=== PATIENT | male | born 1950 | race Caucasian/White ===

== ENCOUNTER → 2018-02-13 09:08 | Outpatient (CLI) | payer MEDICARE, OTHER, SELFPAY ==
[2018-02-13 10:55] LABS: Alanine Aminotransferase 35 IU/L (21-72); Albumin 4.6 g/dL (3.5-5.0); Albumin Globulin Ratio 1.5 (1.0-2.8); Alkaline Phosphatase 58 U/L (38-126); Aspartate Aminotransferase 25 IU/L (17-59); BUN Creatinine Ratio 23.3 (6-22); Bilirubin Total 0.8 mg/dL (0.2-1.3); Blood Urea Nitrogen 21 mg/dL (9-20); Calcium 9.4 mg/dL (8.4-10.2); Carbon Dioxide 31 mmol/L (22-32); Chloride 98 mmol/L (98-107); Cholesterol 208 mg/dL (140-199); Estimated Glomerular Filt Rate > 60.0 mL/min (>60); Globulin 3.1 g/dL (1.7-4.1); Glucose 98 mg/dL (80-110); HDL Cholesterol 54 mg/dL (40-60); HEMOLYSIS < 15 (0-50); LDL Cholesterol Calculated 130 mg/dL (<100); Potassium 4.4 mmol/L (3.4-5.1); Sodium 139 mmol/L (137-145); Total Protein 7.7 g/dL (6.3-8.2); Triglycerides 122 mg/dL (35-150)
[2018-02-13 11:22] LABS: Prostate Specific Antigen Scrn 0.391 ng/mL (0.1-4.0)
[2018-02-13 11:52] LABS: Hep C Virus Ab w/Reflex Quant NEGATIVE s/c (NEGATIVE)
== END ==
PROVIDERS: Visit Provider Internal Medicine
DX: E78.00 Pure hypercholesterolemia, unspecified (principal); D48.5 Neoplasm of uncertain behavior of skin
CPT/HCPCS: 36415; 80053; 80061; 86803; G0103

== ENCOUNTER → 2018-05-17 10:37 | Outpatient (CLI) | payer MEDICARE, OTHER, SELFPAY ==
[2018-05-17 13:21] LABS: Cholesterol 172 mg/dL (140-199); HDL Cholesterol 55 mg/dL (40-60); LDL Cholesterol Calculated 92 mg/dL (<100); Triglycerides 126 mg/dL (35-150)
== END ==
PROVIDERS: PCP Internal Medicine; Visit Provider Internal Medicine
DX: E78.00 Pure hypercholesterolemia, unspecified (principal)
CPT/HCPCS: 36415; 80061

== ENCOUNTER → 2019-10-23 13:48 | Outpatient (CLI) | payer MEDICARE, OTHER, SELFPAY ==
[2019-10-23 14:43] LABS: Alanine Aminotransferase 35 IU/L (<50); Albumin 4.5 g/dL (3.5-5.0); Albumin Globulin Ratio 1.7 (1.0-2.8); Alkaline Phosphatase 73 U/L (38-126); Aspartate Aminotransferase 30 IU/L (17-59); BUN Creatinine Ratio 19.8 (6-22); Bilirubin Total 0.5 mg/dL (0.2-1.3); Blood Urea Nitrogen 16 mg/dL (9-20); Calcium 9.5 mg/dL (8.4-10.2); Carbon Dioxide 27 mmol/L (22-32); Chloride 94 mmol/L (98-107); Cholesterol 168 mg/dL (140-199); Estimated Glomerular Filt Rate > 60.0 mL/min (>60); Globulin 2.7 g/dL (1.7-4.1); Glucose 87 mg/dL (80-110); HDL Cholesterol 51 mg/dL (40-60); HEMOLYSIS < 15 (0-50); LDL Cholesterol Calculated 88 mg/dL (<100); Potassium 4.4 mmol/L (3.4-5.1); Sodium 131 mmol/L (137-145); Total Protein 7.2 g/dL (6.3-8.2); Triglycerides 146 mg/dL (35-150)
== END ==
PROVIDERS: PCP Internal Medicine; Referring Provider Internal Medicine; Visit Provider Internal Medicine
DX: E78.00 Pure hypercholesterolemia, unspecified (principal)
CPT/HCPCS: 36415; 80053; 80061

== ENCOUNTER → 2021-10-31 13:23 | Outpatient (CLI) | payer MEDICARE, OTHER, SELFPAY ==
--- NOTE | 2021-11-23 07:37 | P.HOLT.S_ITS ---
[employer] Chemist Report Referral & Results Date Patient Seen: 10/31/21 Requesting provider: Joni Mae Indication: Atrial fibrillation Duration of monitoring (days): 14 Diary information: There was 1 patient triggered event and 1 patient diary entry and both of these events were associated with sinus rhythm only Data: Minimum heart rate identified was 43 beats per minute at 02:35 on 11/12/2021 Maximum heart rate was 132 beats per minute at 14:52 on 11/02/2021 Less than 1% of identified beats were ventricular or supraventricular ectopic in origin, which would classify them as rare. Atrial fibrillation was identified on this study comprising less than 1% of identified beats with the longest duration episode lasting 1 minute 3 seconds. 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
== END ==
PROVIDERS: PCP Internal Medicine; Referring Provider Family Medicine; Visit Provider Family Medicine
DX: I49.9 Cardiac arrhythmia, unspecified (principal); I48.91 Unspecified atrial fibrillation
CPT/HCPCS: 93246; 93248

== ENCOUNTER 2022-01-09 15:27 | Emergency (ER) | payer MEDICARE, OTHER, SELFPAY ==
[2022-01-09] VITALS (46 sets, daily range): BP systolic 99–139; BP diastolic 59–88; PULSE 60–150; RESP 12–24; TEMP 36.4; O2SAT 94–100; BMI 27.9
--- NOTE | 2022-01-09 15:37 | DI.RAD.S_ITS ---
PROCEDURE: XR CHEST 1V INDICATIONS: chest pain TECHNIQUE: One view of the chest was acquired. COMPARISON: None. FINDINGS: Surgical changes and devices: None. Lungs and pleura: Lungs are clear. No pleural effusions or pneumothorax. Mediastinum: The cardiac contours are within normal limits. The aorta demonstrates calcification and tortuosity. Bones and chest wall: No suspicious bony lesions. Age-appropriate bony degenerative changes are seen. Overlying soft tissues appear unremarkable. IMPRESSION: Unremarkable portable chest for age. Dictated by: Pasquale Brenner M.D. on 01/09/2022 at 15:14 Approved by: Pasquale Brenner M.D. on 01/09/2022 at 15:15
[2022-01-09 15:59] LABS: Add Manual Diff / Slide Review NO; Basophils Absolute Auto 0 /uL (0-100); Basophils Percent Auto 0.3 % (0-2); Eosinophils Absolute Auto 100 /uL (0-450); Eosinophils Percent Auto 0.6 % (2-4); Hematocrit 43.5 % (41-53); Hemoglobin 14.7 g/dL (13.5-17.5); Lymphocytes Absolute Auto 4200 /uL (1100-4500); Lymphocytes Percent Auto 37.3 % (25-40); Mean Corpuscular HGB Conc 33.9 % (30-36); Mean Corpuscular Hemoglobin 31.5 PG (26-34); Mean Corpuscular Volume 92.9 fL (80-100); Monocytes Absolute Auto 700 /uL (0-900); Monocytes Percent Auto 6.2 % (3-14); Neutrophils Absolute Auto 6200 /uL (1500-7000); Neutrophils Percent Auto 55.6 % (50-75); Platelet Count 224 X10^3/uL (150-400); Red Blood Cell Count 4.68 X10^6/uL (4.5-5.9); Red Cell Distribution Width 13.4 % (11.6-14.8); White Blood Cell Count 11.2 X10^3/uL (4.5-11.0)
[2022-01-09 16:04] LABS: Alanine Aminotransferase 38 IU/L (<50); Albumin 4.3 g/dL (3.5-5.0); Albumin Globulin Ratio 1.3 (1.0-2.8); Alkaline Phosphatase 65 U/L (38-126); Aspartate Aminotransferase 39 IU/L (17-59); BUN Creatinine Ratio 26.1 (6-22); Bilirubin Total 0.5 mg/dL (0.2-1.3); Blood Urea Nitrogen 23 mg/dL (9-20); Calcium 9.1 mg/dL (8.4-10.2); Carbon Dioxide 23 mmol/L (22-32); Chloride 95 mmol/L (98-107); Creatine Kinase 66 U/L (55-170); Estimated Glomerular Filt Rate > 60 mL/min (>60); Globulin 3.2 g/dL (1.7-4.1); Glucose 116 mg/dL (80-110); HEMOLYSIS < 15 (0-50); Lipase 79 U/L (23-300); Magnesium 1.9 mg/dL (1.6-2.3); Potassium 3.8 mmol/L (3.4-5.1); Sodium 129 mmol/L (137-145); Total Protein 7.5 g/dL (6.3-8.2)
--- NOTE | 2022-01-09 16:13 | PC.NURSE ---
Addendum entered by Tito Cassidy R.N. 01/09/22 16:15: Pt reports similar episodes that began in his 40s. Original Note: Pt reports 2-3 episodes of feeling heart palpitations with exertion in past 6 months. Pt was hiking today when this episode began. Pt reports episodes always go away with lying flat. Pt reports Zio patch placed earlier this summer for 2 weeks. No new medications.
[2022-01-09 16:15] LABS: Troponin I < 0.012 ng/mL (0.01-0.034)
--- NOTE | 2022-01-09 19:37 | ED_ITS ---
HPI - Arrhythmia/Palpitations General Chief Complaint: Arrhythmia/Palpitations Stated Complaint: Elevated HR, BPM 140-160 Time Seen by Provider: 01/09/22 16:36 Mode of arrival: Family Vehicle History of Present Illness HPI narrative: 71-year-old gentleman with a history of asthma, hyperlipidemia, who has noticed occasional palpitations over the years. He wore a Zio Patch the spring but did not catch any abnormalities. He states the most recent episode was in September lasted for approximately 12 hours with resolution. He describes it as a slower rate. Today he was hiking in the [employer] and noted that his heart all of a sudden began going fast in fairly rapidly. This was at noon today and not associated with any other abnormalities. No chest pain, diaphoresis, dyspnea, syncope or near-syncope. Related Data Previous Rx's Medication Instructions Recorded rivaroxaban 20 mg tablet (Xarelto) 20 mg PO DAILY #30 tabs 01/09/22 Allergies Allergy/AdvReac Type Severity Reaction Status Date / Time No Known Drug Allergies Allergy Verified 01/09/22 15:36 Review of Systems Review of Systems Narrative: Remainder of complete review of systems is otherwise unremarkable except for that included in the HPI. Patient History Medical History (Updated 01/09/22 @ 23:35 by Nevaeh Brown MD) Asthma Chronic GERD Hyperlipidemia Paroxysmal atrial fibrillation Social History Smoking Status: Never smoker Smoking Status: Never smoker alcohol intake frequency: 0-2 drinks per day Substance Use Type: does not use Exam Initial Vital Signs Initial Vital Signs: Vital Signs Temperature 97.6 F 01/09/22 15:33 Pulse Rate 150 H 01/09/22 15:33 Respiratory Rate 12 01/09/22 15:33 Pulse Oximetry 98 01/09/22 15:33 Oxygen Delivery Method 01/09/22 15:33 General: Healthy appearing, in no acute distress. Able to give a complete and coherent history. Well-nourished well-developed HEENT: Moist mucous membranes, normal sclera with reactive pupils, Neck: No JVD, supple Respiratory: Lungs are clear to auscultation, no wheezing no rales no rhonchi. Full and symmetrical air movement Cardiac: Irregular with rate in the 80s, no murmurs no bruits Abdomen: Soft, nontender, good bowel tones, no flank pain Skin: Warm and dry, no rashes Neurologic: Grossly neurologically intact with no obvious asymmetries or abnormalities Extremities: No trauma, well perfused Psych: Cooperative, appropriate insight and affect Procedures Cardioversion Time of Cardioversion: 23:31 Consent Signed: Yes Indication: atrial fibrillation Stability: Stable Number of attempts (shocks): 1 Joules used: 120 Cardiac rhythm post-cardioversion: sinus rate of 65 Procedural Sedation Time of procedure: 23:32 Consent signed: Yes Time out performed: Yes Indication: cardioversion ASA Class: II Mallampati Airway Classification: Class II Time of Last PO Intake: 11:00 Preparation: property assessment monitor applied, pulse oximeter, capnometry used, supplemental O2 applied, suction/airway equipment at bedside and IV secured IV Propofol dose (mg): 40 Intraservice time/total sedation time (min): 8 ED Sedation Level: Moderate (Concious) Patient Tolerated Procedure: Well Complications: none Course Orders Ordered: ED Orders 01/09/22 15:37 XR chest 1V Stat EKG-12 Lead Stat 01/09/22 15:40 Complete Blood Count AUTO DIFF Stat Comprehensive Metabolic Panel Stat Lipase Stat Magnesium Stat Troponin & CK Cardiac Panel Stat Discontinued Medications Propofol (Propofol 200 Mg/20 Ml Vial) 175 mg 2 mg/kg (175 mg) IV NOW ONE Stop: 01/09/22 22:11 Last Admin: 01/09/22 22:42 Dose: 40 mg Rivaroxaban (Rivaroxaban 10 Mg Tablet) 20 mg PO NOW ONE Stop: 01/09/22 22:11 Last Admin: 01/09/22 22:23 Dose: 20 mg Vital Signs Vital signs: Vital Signs - 8 hr 01/09/22 15:37 01/09/22 15:37 01/09/22 16:00 Pulse Rate 132 H Respiratory Rate 24 Blood Pressure 139/88 121/75 Pulse Oximetry 97 01/09/22 16:00 01/09/22 16:30 01/09/22 16:30 Pulse Rate 107 H 85 Respiratory Rate 16 14 Blood Pressure 117/63 Pulse Oximetry 97 97 01/09/22 17:00 01/09/22 17:00 01/09/22 17:30 Pulse Rate 90 Respiratory Rate 15 Blood Pressure 99/66 115/76 Pulse Oximetry 97 01/09/22 17:30 01/09/22 18:00 01/09/22 18:00 Pulse Rate 80 80 Respiratory Rate 13 19 Blood Pressure 102/67 Pulse Oximetry 96 95 01/09/22 18:30 01/09/22 18:30 01/09/22 19:00 Pulse Rate 80 Respiratory Rate 18 Blood Pressure 107/64 108/68 Pulse Oximetry 96 01/09/22 19:00 01/09/22 19:32 01/09/22 20:00 Pulse Rate 80 145 H Respiratory Rate 17 Blood Pressure 107/66 Pulse Oximetry 97 94 01/09/22 20:00 01/09/22 20:30 01/09/22 20:30 Pulse Rate 79 84 Respiratory Rate 17 18 Blood Pressure 116/71 Pulse Oximetry 98 96 01/09/22 21:00 01/09/22 21:00 01/09/22 21:30 Pulse Rate 80 Respiratory Rate 18 Blood Pressure 110/71 119/64 Pulse Oximetry 97 01/09/22 21:30 01/09/22 22:47 01/09/22 21:35 Pulse Rate 79 60 81 Respiratory Rate 19 18 21 Blood Pressure Pulse Oximetry 96 96 01/09/22 21:40 01/09/22 21:45 01/09/22 21:50 Pulse Rate 78 78 79 Respiratory Rate 17 21 18 Blood Pressure Pulse Oximetry 96 96 97 01/09/22 21:55 01/09/22 22:00 01/09/22 22:00 Pulse Rate 79 78 Respiratory Rate 14 22 Blood Pressure 123/71 Pulse Oximetry 97 97 01/09/22 22:05 01/09/22 22:10 01/09/22 22:20 Pulse Rate 77 83 85 Respiratory Rate 22 23 23 Blood Pressure Pulse Oximetry 97 96 96 01/09/22 22:25 01/09/22 22:30 01/09/22 22:35 Pulse Rate 81 90 69 Respiratory Rate 19 18 Blood Pressure Pulse Oximetry 96 99 100 01/09/22 22:36 01/09/22 22:36 01/09/22 22:38 Pulse Rate 70 Respiratory Rate 17 Blood Pressure 119/68 109/65 Pulse Oximetry 99 01/09/22 22:38 01/09/22 22:40 01/09/22 22:40 Pulse Rate 68 68 Respiratory Rate 18 20 Blood Pressure 117/68 Pulse Oximetry 99 99 01/09/22 22:45 01/09/22 22:45 01/09/22 22:49 Pulse Rate 61 61 Respiratory Rate 24 17 Blood Pressure 110/66 Pulse Oximetry 99 99 01/09/22 22:50 01/09/22 22:50 01/09/22 22:55 Pulse Rate 61 Respiratory Rate 17 Blood Pressure 109/61 107/62 Pulse Oximetry 99 01/09/22 22:55 01/09/22 23:00 01/09/22 23:00 Pulse Rate 62 64 Respiratory Rate 19 17 Blood Pressure 110/67 Pulse Oximetry 98 99 01/09/22 23:05 01/09/22 23:05 01/09/22 23:10 Pulse Rate 63 Respiratory Rate 18 Blood Pressure 104/62 107/68 Pulse Oximetry 99 01/09/22 23:10 01/09/22 23:14 01/09/22 23:15 Pulse Rate 65 66 Respiratory Rate 17 24 Blood Pressure 102/65 Pulse Oximetry 99 99 MDM - Arrhythmia/Palpitations Lab Data Result diagrams: 01/09/22 15:40 01/09/22 15:40 Labs: Lab Results 01/09/22 01/09/22 Range/Units 15:40 15:40 WBC 11.2 H (4.5-11.0) X10^3/uL RBC 4.68 (4.5-5.9) X10^6/uL Hgb 14.7 (13.5-17.5) g/dL Hct 43.5 (41-53) % MCV 92.9 (80-100) fL MCH 31.5 (26-34) PG MCHC 33.9 (30-36) % RDW 13.4 (11.6-14.8) % Plt Count 224 (150-400) X10^3/uL Neut % (Auto) 55.6 (50-75) % Lymph % (Auto) 37.3 (25-40) % Callahan % (Auto) 6.2 (3-14) % Eos % (Auto) 0.6 L (2-4) % Baso % (Auto) 0.3 (0-2) % Neut # (Auto) 6200 (1755-3775) /uL Lymph # (Auto) 4200 (1346-8179) /uL Callahan # (Auto) 700 (0-900) /uL Eos # (Auto) 100 (0-450) /uL Baso # (Auto) 0 (0-100) /uL Sodium 129 L (137-145) mmol/L Potassium 3.8 (3.4-5.1) mmol/L Chloride 95 L (98-107) mmol/L Carbon Dioxide 23 (22-32) mmol/L BUN 23 H (9-20) mg/dL Creatinine 0.88 (0.66-1.25) mg/dL Estimated GFR > 60 (>60) mL/min BUN/Creatinine Ratio 26.1 H (6-22) Glucose 116 H (80-110) mg/dL Calcium 9.1 (8.4-10.2) mg/dL Magnesium 1.9 (1.6-2.3) mg/dL Total Bilirubin 0.5 (0.2-1.3) mg/dL AST 39 (17-59) IU/L ALT 38 (<50) IU/L Alkaline Phosphatase 65 (38-126) U/L Total Creatine Kinase 66 (55-170) U/L CK-MB (CK-2) TNP CK-MB (CK-2) Rel Index TNP Troponin I < 0.012 (0.01-0.034) ng/mL Total Protein 7.5 (6.3-8.2) g/dL Albumin 4.3 (3.5-5.0) g/dL Globulin 3.2 (1.7-4.1) g/dL Albumin/Globulin Ratio 1.3 (1.0-2.8) Lipase 79 (23-300) U/L Urine Dip Bedside Urine Glucose Negative Bedside Urine Bilirubin - Negative Bedside Urine Ketone - Negative Urine Specific [place] 1.015 Bedside Urine Occult Blood - Negative Bedside Urine pH 6.0 Bedside Urine Protein - Negative Bedside Urine Urobilinogen - Negative Bedside Urine Nitrite - Negative Bedside Urine Leukocytes - Negative Esterase Imaging Data Chest x-ray: Radiologist's Impresson: FINDINGS:? ? Surgical changes and devices:? None.? ? Lungs and pleura:? Lungs are clear.? No pleural effusions or pneumothorax.? ? Mediastinum:? The cardiac contours are within normal limits. The aorta demonstrates calcification and tortuosity. ? Bones and chest wall:? No suspicious bony lesions.? Age-appropriate bony degenerative changes are seen.? ? Overlying soft tissues appear unremarkable.? IMPRESSION:? Unremarkable portable chest for age. ? ? Dictated by: Pasquale Brenner M.D. on 01/09/2022 at 15:14 ?? ECG Data Interpretation: Time 3:38 p.m. Atrial fibrillation at a rate of 122 Incomplete right bundle-branch block, nonspecific ST T waves No acute ischemic changes Post cardioversion EKG 2300 Sinus rhythm at a rate of 65 with first-degree block Nonspecific ST T wave abnormalities without acute ischemia MDM Narrative Medical decision making narrative: Pleasant 71-year-old gentleman who has had a history of palpitations and with his physicians has been trying to catch the rhythm to make a full diagnosis. The last episode of irregularity was in September, seem to be slow was not associated with pain, diaphoresis and resolved in less than 24 hours. He had a Zio patch in place earlier this spring with normal sinus appreciated throughout the entire time frame. He had an episode of the atrial fibrillation starting at noon today while he [place] Slightly rapid rate in the 120s without other symptoms. Will is been in the emergency department his rate has slowed to the 60s to 80s. At no time has he had chest pain, diaphoresis, nausea, vomiting. Labs are reassuring with a slightly low sodium of 128. Normal magnesium, potassium. No evidence of acute coronary syndrome or congestive heart failure. Care is reviewed with Cardiology, Dr. Cheko fang. He recommended 20 mg of oral Xarelto, cardioversion. Dr. Wong will contact the patient to see him richi rrow in the office. All of this is reviewed with the patient who is amenable to plan as outlined. Discharge Plan Departure Patient Disposition: Home Clinical Impression: Atrial fibrillation with RVR Instructions: DI for Cardioversion, DI for Atrial Fibrillation, DI for Moderate Sedation Activity Restrictions/Additional Instructions: Thank you for coming in today You had atrial fibrillation. Your lab work was reassuring with no evidence of acute heart attack or congestive heart failure. You are given a dose of Xarelto and you were electrically cardioverted with a single shock back to sinus rhythm. I reviewed her care with Dr. Tyler, our production maintenance mechanic. His office will be contacting you tomorrow and will plan on seeing you in the office tomorrow to follow-up. You will need to continue with Xarelto until instructed otherwise. If you find that you are getting worse or develop any new symptoms, please feel free to return to the emergency department for further evaluation. Prescriptions: New Xarelto 20 mg tablet 20 mg PO DAILY Qty: 30 0RF Rx Instructions: must administer with evening meal Referrals: Daniel Mitchell MD [Primary Care Provider] -
[2022-01-09] MEDS: RIVAROXABAN 10 MG TABLET 20 MG PO (22:23)
[2022-01-09] MEDS: propofoL 200 MG/20 ML VIAL 175 MG IV (22:42)
== END 2022-01-09 23:46 | disposition home or self-care (01) ==
PROVIDERS: Family Medicine Addiction Medicine; Emergency Provider Emergency Medicine; PCP Internal Medicine
DX: I48.20 Chronic atrial fibrillation, unspecified (principal); Z79.01 Long term (current) use of anticoagulants
CPT/HCPCS: 36415; 71045; 80053; 81003; 82550; 83690; 83735; 84484; 85025; 92960; 93005; 99285; J2704